=== PATIENT | male | born 1930 | race Caucasian/White ===

== ENCOUNTER 2017-01-08 09:06 | Outpatient (CLI) | payer MEDICARE ==
[~2017-01-08] VITALS: Ht 172.7 cm; Wt 68.6 kg
[2017-01-08] VITALS (16 sets, daily range): BP systolic 118–173; BP diastolic 70–110; PULSE 65–79; TEMP 98.4
== END 2017-01-08 13:40 | disposition home or self-care (01) ==
LOC: COL.RAD 09:06
DX: C83.34 Diffuse large B-cell lymphoma, lymph nodes of axilla and upper limb (principal)

== ENCOUNTER 2017-03-19 08:52 | Outpatient (CLI) | payer MEDICARE ==
[~2017-03-19] VITALS: Ht 172.7 cm; Wt 70.8 kg
[2017-03-19] VITALS (17 sets, daily range): BP systolic 105–163; BP diastolic 51–100; PULSE 39–96; TEMP 97.8
== END 2017-03-19 13:15 | disposition home or self-care (01) ==
LOC: COL.RAD 08:52
DX: C83.34 Diffuse large B-cell lymphoma, lymph nodes of axilla and upper limb (principal); R91.8 Other nonspecific abnormal finding of lung field
CPT/HCPCS: 27584